=== PATIENT | female | born 1965 | race African-American/Black ===

== ENCOUNTER 2018-05-27 11:29 | Emergency (ER) | payer OTHER ==
[2018-05-27] MEDS ORDERED: IOHEXOL 300MG/ML 150 ML BTL (14:07)
[2018-05-27] MEDS ORDERED: SOD CHLORIDE 0.9% 100 ML (14:07)
[2018-05-27] MEDS ORDERED: IOHEXOL 300MG/ML 30 ML BTL (14:17)
[2018-05-27] MEDS ORDERED: LIDOCAINE 1% (MPF) 5 ML VIAL (14:57)
== END 2018-05-27 15:39 | disposition home or self-care (01) ==
LOC: E/R 15:39
DX: T83.092A Other mechanical complication of nephrostomy catheter, initial encounter (principal); I10 Essential (primary) hypertension; Y73.2 Prosthetic and other implants, materials and accessory gastroenterology and urology devices associated with adverse incidents
CPT/HCPCS: 36589; 99283-25